=== PATIENT | female | born 1960 | race Two or more races ===

== ENCOUNTER → 2019-04-23 15:12 | Outpatient (CLI) | payer MEDICAID | END | disposition home or self-care (01) | LOC: D.US 15:12 | PROVIDERS: ATTEND Internal Medicine Pulmonary Disease | DX: R60.0 Localized edema (principal) ==

== ENCOUNTER → 2019-05-23 10:16 | Outpatient (CLI) | payer MEDICAID | END | disposition home or self-care (01) | LOC: D.RT 10:00 | PROVIDERS: ATTEND Internal Medicine Pulmonary Disease | DX: R09.1 Pleurisy (principal); R06.09 Other forms of dyspnea ==

== ENCOUNTER → 2019-07-29 15:25 | Outpatient (CLI) | payer MEDICAID | END | disposition home or self-care (01) | LOC: D.RAD 15:25 | PROVIDERS: ATTEND Internal Medicine Pulmonary Disease | DX: R09.1 Pleurisy (principal) ==